=== PATIENT | male | born 1960 | race Caucasian/White ===

== ENCOUNTER 2023-05-08 11:21 | Observation (INO) ==
[2023-05-08 11:49] LABS: ABS Basophils 0.1 10^3/uL (0.0-0.1); ABS Eosinophils 0.2 10^3/uL (0.0-0.5); ABS Lymphocytes 2.2 10^3/uL (1.0-4.8); ABS Monocytes 0.7 10^3/uL (0.0-1.1); ABS Neutrophils 4.4 10^3/uL (1.5-7.6); ABS Nucleated RBC 0.01 10^3/ul; Eosinophil % 3.3 %; Hematocrit 45.8 % (38-53); Hemoglobin 15.6 g/dL (13.2-16.3); Lymphocyte % 28.7 %; Mean Corpuscular Hemoglobin 28.9 pg (27-33); Mean Corpuscular Hgb Conc 34.1 g/dL (31-36); Mean Corpuscular Volume 84.7 fL (80-97); Mean Platelet Volume 7.6 fL (7.5-11.2); Nucleated Red Blood Cells % 0.1 /100 WBC (0.0-0.4); Platelet Count 231 10^3/uL (150-450); Red Cell Distribution Width 13.9 % (12-17); White Blood Count 7.6 10^3/uL (3.6-10.2)
[2023-05-08 11:57] LABS: INR 1.13 (0.88-1.18)
[2023-05-08 12:05] LABS: Albumin 4.4 g/dL (3.2-5.2); Albumin/Globulin Ratio 1.7 (1-3); Calcium 9.9 mg/dL (8.6-10.3); Creatinine, Serum 1.08 mg/dL (0.67-1.17); Direct Bilirubin 0.1 mg/dL (0.03-0.18); Globulin 2.6 g/dL (2-4); Indirect Bilirubin 0.9 mg/dL (0.3-1.0); Potassium 4.3 mmol/L (3.5-5.0); eGFR CKD-EPI 77.6 (>60)
[2023-05-08] MEDS ORDERED: TENECTEPLASE 50 MG VIAL KIT 5 MG/ML (reconstituted) IV ONE (12:23)
[2023-05-09 04:53] LABS: Hematocrit 42.3 % (38-53); Hemoglobin 14.5 g/dL (13.2-16.3); Mean Corpuscular Hemoglobin 28.8 pg (27-33); Mean Corpuscular Hgb Conc 34.4 g/dL (31-36); Mean Corpuscular Volume 83.6 fL (80-97); Mean Platelet Volume 7.5 fL (7.5-11.2); Platelet Count 202 10^3/uL (150-450); Red Blood Count 5.05 10^6/uL (4.06-5.63); Red Cell Distribution Width 13.9 % (12-17); White Blood Count 10.6 10^3/uL (3.6-10.2)
[2023-05-09 05:07] LABS: Potassium 3.9 mmol/L (3.5-5.0)
[2023-05-09 05:08] LABS: Creatinine, Serum 1.04 mg/dL (0.67-1.17); eGFR CKD-EPI 81.2 (>60)
[2023-05-09] MEDS ORDERED: LORazepam 2 mg VIAL 1 ml IV PUSH PRN (07:26)
[2023-05-09] MEDS ORDERED: Lorazepam PYXIS KEY PRN (07:26)
[2023-05-09] MEDS ORDERED: Enoxaparin 80 MG/0.8 ML SYR SUBCUT SCH (15:00)
[2023-05-09 15:25] VITALS: BP 171/88
[2023-05-10] MEDS ORDERED: Iodixanol (CONTRAST) 320 MG/ML 100 ML SDV IV ONE (07:15)
== END 2023-05-09 16:00 | disposition home or self-care (01) ==
LOC: EDHOLD 11:21 → ED 11:21 → ICU 14:50
PROVIDERS: ADMIT Internal Medicine; ATTEND Internal Medicine